=== PATIENT | female | born 1965 | race African-American/Black ===

== ENCOUNTER 2016-11-03 17:37 | Emergency (ER) | payer OTHER ==
--- NOTE | ~2016-11-03 | EKG ---
PATIENT: MOISES TREVINO UNIT #: [id number] Ventricular Rate: 93 BPM Atrial Rate: 93 BPM P-R Interval: 140 ms QRS Duration: 78 ms Q-T Interval: 350 ms QTC Calculation(Bezet): 435 ms P Mayer: 61 degrees Calculated R Mayer: 15 degrees Calculated T Mayer: 60 degrees Diagnosis Line: Normal sinus rhythm Diagnosis Line: Normal ECG Diagnosis Line: When compared with ECG of 16-DEC-2014 11:19, Diagnosis Line: No significant change was found Diagnosis Line: Confirmed by ELBA WERNER MD ([id number]) on 11/03/2016 Diagnosis Line: 11:09:52 PM INTERPRETING MD: DEBBI SCHNEIDER
--- NOTE | ~2016-11-03 | CR72 ---
[facility] A Service of [facility] & [facility] RADIOLOGY TEXT RESULTS PATIENT: MOISES TREVINO LOCATION: [facility] : 63 UNIT #: [id number] AGE: [address]: Jose Manuel Rios MD SEX: F ORDER DR: [id number] [facility] [address] [place], [place] [address] [id number] MR#: [id number] Acc #: [id number] NAME: MOISES TREVINO : 1965 SEX: F STUDY DATE/TIME: 11/03/2016 18:26 UNIT: [facility] ROOM: STUDY DESCRIPTION: CR Chest Single View Portable Attending Physician: Jose Manuel Rios M.D. Ordering Physician: Jose Manuel Rios M.D. Primary Care Physician: Heidi Ramon A.P.R.N. MEDICAL IMAGING REPORT This report is preliminary unless electronic signature is present EXAM AP portable chest Date 11/03/2016 18:26 HISTORY 51-year-old female with shortness breath and chest pain for 3 days. COMPARISON PA lateral chest radiograph 12/16/2014. FINDINGS A single AP portable view of the chest shows both lungs to be clear. The heart is normal in size. The mediastinal contour is normal. No significant bone abnormalities are seen. IMPRESSION Normal portable chest. Dictated by... Nicci Gomez M.D. THIS IS AN ELECTRONICALLY VERIFIED REPORT Nicci Gomez M.D. at 11/05/2016 9:51 AM BETZAIDAH/antoni TD: 11/04/2016 11:52 JOB #: [id number] MEDICAL IMAGING REPORT Page 1 of 1 COPY
[~2016-11-03 17:37] MED LIST: COLACE PO; KEFLEX PO; LORTAB 7.5-5001 TAB PO; NORCO 10/325 TA1 TAB PO; VISTARIL PO
[2016-11-03 18:03] LABS: BASOPHIL# 0.1 X10e3 (0-0.3); EOSINOPHIL% 0.5 % (0.0-7.0); HEMATOCRIT 38.1 % (35.0-45.0); HEMOGLOBIN 12.2 gm/dL (12.0-16.0); LYMPHOCYTE# 2.7 X10e3 (1.0-3.5); MEAN CELL VOLUME 75.6 FL (83-96); MEAN CORPUSCULAR HEMOGLOBIN 24.2 PG (28-34); MEAN PLATELET VOLUME 8.6 FL (6.5-11.5); MONOCYTE# 0.5 X10e3 (0-1.0); MONOCYTE% 5.5 % (3.0-12.0); PLATELET COUNT 227 X10e3 (140-420); RED BLOOD COUNT 5.04 X10e (3.90-5.30); RED CELL DISTRIBUTION WIDTH 14.9 % (11.0-15.5); WHITE BLOOD COUNT 8.3 X10e3 (4.0-10.5)
[2016-11-03 18:11] LABS: DIFF IND NO
[2016-11-03 18:15] LABS: POC - CKMB 2.2 ng/mL (0.0-7.9); POC - TROPONIN <0.05 ng/mL (<=0.05)
[2016-11-03 18:28] LABS: ALBUMIN SERUM 3.9 g/dL (3.5-5.0); BILIRUBIN, DIRECT 0.2 mg/dL (0.0-0.2); BILIRUBIN,INDIRECT 0.9 mg/dL (0.0-0.9); BILIRUBIN,TOTAL 1.1 mg/dL (0.2-2.0); BUN/CREATININE RATIO 15.38; CALCIUM SERUM 9.2 mg/dL (8.4-10.2); CREATININE SERUM 1.3 mg/dL (0.6-1.4); GLOM FILT RATE Estimated 54.6 mL/min (>60); POTASSIUM 3.6 mmol/L (3.5-5.1)
== END 2016-11-03 20:45 | disposition home or self-care (01) ==
LOC: CED 17:37
PROVIDERS: Emergency Medicine
DX: R07.89 Other chest pain (principal)
CPT/HCPCS: 36415; 71010; 80048; 80076; 82553; 83690; 84484; 85025; 93005; 99285